=== PATIENT | female | born 1940 | race Caucasian/White ===

== ENCOUNTER 2018-10-31 23:23 | Inpatient (IN) | payer MEDICARE, BC, OTHER ==
[~2018-10-31] VITALS: Ht 157.5 cm; Wt 76.7 kg
--- NOTE | ~2018-10-31 | CON ---
[address] [address] CONSULTATION Name: DECLAN CRISOSTOMO Room: [address] IN .R.#: [id number] Admission: 11/01/18 Attend Phys: Ridge Stallworth MD Discharge: Date of : 38 Report #: [id number] THIS REPORT FOR: //name// CC: Ridge Stallworth [facility] physician/PCP DICTATED BY: Johnna HALLMAN DATE OF SERVICE: 11/01/2018 The patient does not have a current PCP. Please note at the time of this dictation, the patient was seen and physically examined by myself. REASON FOR CONSULTATION: Nausea and melenic stool. HISTORY OF PRESENT ILLNESS: This is a 77-year-old female who presented to the Emergency Room with generalized weakness. Prior to her visit to the ER, she has had 3 days' worth of very dark or black stools that she noted some bright red blood as well. She states her bowels were slightly looser than they normally have been, but were not runny, they were still semi-formed and had not increased in frequency. She did have a little bit of nausea with this yesterday when she felt profoundly fatigued. She was only having one melenic stool daily, did feel a little lightheaded and kind of broke out in sweat yesterday evening prior to coming in. She does take Aleve at bedtime for her arthritic pain periodically; some week she would not take any and other week she may take at a couple of times a week. She denies any Pepto-Bismol or any iron supplements at this time. The patient did say she had a colonoscopy 15+ years ago, she thinks somewhere in [facility], but she does not recall. She was told that she had a polyp at that time. ALLERGIES: INHALERS. MEDICATIONS: From home are spironolactone, Erin Thyroid and progesterone. 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 Hypertension. 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 FAMILY HISTORY: Mother had a female cancer. She does not recall what kind. SOCIAL HISTORY: She is . Denies any alcohol, tobacco [place] [address] CONSULTATION Name: DECLAN CRISOSTOMO Room: [address]#: [id number] Admission: 11/01/18 Attend Phys: Ridge Stallworth MD Discharge: Date of : 38 Report #: [id number] REVIEW OF SYSTEMS: Twelve-point review of systems is essentially negative except what is mentioned in the HPI. PHYSICAL EXAMINATION: VITAL SIGNS: Temperature 36.6, pulse 79, respirations 18, blood pressure 130/60. HEART: Regular rate and rhythm. LUNGS: Clear. ABDOMEN: Soft, positive bowel sounds in all 4 quadrants with no masses or tenderness noted. LABORATORY DATA: Hemoglobin on admission was 12.4, she is 11.6. White count is 7.4, platelets are 79,000. PT is 10.6, INR is 1, GFR is 54. Her LFTs are completely normal. CT of her abdomen and pelvis negative gallbladder, liver and pancreas, did show a fibroid with endometrial thickening and some diverticular disease noted. IMPRESSION: 1. Nausea, which has now resolved. 2. Melenic stool, x 4 days. 3. Weakness. 4. Thrombocytopenia. 5. History of polyps, greater than 15 years ago last colon. 6. Family history of mother female cancer, unknown type. PLAN: 1. EGD: Tomorrow with Dr. Jackson. 2. Prep today. 3. Further recommendations to be made once the procedure has been performed. Thank you for allowing us to participate in this patient's care. Please do not hesitate to call with any questions in regard to this consult. By: [id number] Jackson DO /rachel
[2018-10-31 23:30] VITALS: BP 156/78
[2018-10-31] MEDS ORDERED: SPIRONOLACTONE25 M1 PO (23:36)
[2018-10-31] MEDS ORDERED: ARMOUR THYROID15 M1 PO (23:37)
[2018-10-31] MEDS ORDERED: PROGESTERONE100 MG PO (23:38)
[2018-11-01 00:16] LABS: ABSOLUTE BASOPHILS 0.1 thou/uL (0.0-0.2); ABSOLUTE EOSINOPHILS 0.2 thou/uL (0.0-0.7); ABSOLUTE LYMPHOCYTES 2.8 thou/uL (0.8-5.3); ABSOLUTE MONOCYTES 0.3 thou/uL (0.0-1.2); ABSOLUTE NEUTROPHILS 4.1 thou/uL (1.6-8.1); BASOPHILS 0.7 %; EOSINOPHILS 2.7 %; HEMATOCRIT 36.3 % (37.0-47.0); HEMOGLOBIN 12.4 gm/dL (12.0-15.0); LYMPHOCYTES 37.7 %; MCH 30.9 pg (26.0-34.0); MCV 90.9 fL (80.0-100.0); MONOCYTES 4.2 %; MPV 7.9 fl. (7.2-11.1); NUCLEATED RBCS 0 /100WBC; POLYS 54.7 %; RDW-CV 13.5 % (10.5-14.5); WBC 7.4 thou/uL (4.0-11.0)
[2018-11-01 00:20] LABS: CALCIUM 8.7 mg/dL (8.5-10.1); POTASSIUM 4.7 mmol/L (3.5-5.1)
[2018-11-01 00:21] LABS: PROTIME 10.6 Seconds (9.20-11.50)
[2018-11-01 00:30] LABS: ALBUMIN 3.5 g/dL (3.4-5.0); TOTAL BILIRUBIN 0.4 mg/dL (<0.1-1.0); TOTAL PROTEIN 6.8 g/dL (6.4-8.2)
[2018-11-01 01:55] LABS: PLATELET COUNT* 79 thou/uL (150-400)
[2018-11-01 03:19] VITALS: BP 146/80
[2018-11-01 08:26] VITALS: BP 130/60
--- NOTE | 2018-11-01 08:58 | NUR ---
PT TO FLOOR APPROX 0400. ASSESSMENT COMPLETED CHARTED. SEE MAR. SEE CHARTING. HOURLY ROUNDING FOR SAFETY.
--- NOTE | 2018-11-01 10:21 | EKG ---
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: : [id number] Requested By: Natasha Santos Order Number: [id number] : Vishal Mathis Measurements Intervals [place] Rate: 74 P: 2 DC: 182 QRS: 41 QRSD: 91 T: 63 QT: 391 QTc: 434 Interpretive Statements Sinus rhythm Abnormal R-wave progression, early transition No previous ECG available for comparison Electronically Signed On 11-01-2018 10:21:39 CDT by Vishal Mathis [email or web address] <ELECTRONICALLY SIGNED> By: Vishal Mathis MD, [facility] 11/01/18 1021 0309 030 Vishal Mathis MD, [facility] /EPI
--- NOTE | 2018-11-01 10:29 | NUR ---
ASSUMED CARE OF PT THIS AM AROUND 714- FITNESS LEADER IN PLACE ORDERED, TRACING SR- UPON ASSESSMENT PT NOTED TO BE RESTING IN BED- PT A&O X4- CONTINENT OF BOWEL AND BLADDER- UP AD-YOVANA IN ROOM, STEADY GAIT NOTED- LCTA, RESP EVEN AND UN-LABORED- VSS, O2 SAT 98% ON RA- ABD SOFT/ROUND/NON-TENDER, BS X4 QUADS- PT REPORTED TO HAVE HAD FORMED BLACK IN COLOR BM WITH BLOOD NOTED PER TECH THIS X1- CLEAR LIQUID DIET IN PLACE- IV NOTED TO RIGHT FA INTACT, IVF INFUSSING PRESCIBED- PELVIC US ORDERED FOR THIS AM- PT DENIES ANY C/O PAIN/DISCOMFORT AT THIS TIME- CALL LIGHT AND PERSONAL BELONGINGS WITH IN REACH- PT MAKES NEEDS KNOWN- ALL NEEDS MET AT THIS TIME-WCTM
--- NOTE | 2018-11-01 13:52 | NUR ---
MET WITH PT TO DISCUSS HOME SITUATION/DC PLANNING. PT LIVES WITH SPOUSE. SHE IS NORMALLY INDEPENDENT AND ACTIVE. USES NO EQUIPMENT. HAD HH IN PAST AFTER JOINT SURGERY. PT IS SEEKING NEW DR AT THIS TIME. DISCUSSED AND GAVE LIST. PT DENIES OTHER NEEDS. WILL FOLLOW
--- NOTE | 2018-11-01 16:35 | NUR ---
PT CURRENTLY RESTING IN BED, WATCHING TV- MANAGER GAMING IN PLACE ORDERED, TRACING SR- IV TO RIGHT FA INTACT, IVF INFUSSING PRESCIBED- CLEAR LIQUID DIET IN PLACE ORDERED- EGD/COLON ORDERED FOR IN AM, BOWEL PREP STARTED THIS SHIFT ORDERED AROUND 1510- CONCENT SIGNED AND ON CHART- PT TO BE NPO AT MIDNIGHT- ORDERD ABD CT COMPLETED WITH F/U PELVIS US ORDERED; RESULTS NOTED IN [facility]- PT UP TO BED SIDE CHAIR AND TOLERATING WELL- DENIES ANY C/O PAIN/DISCOMFORT AT THIS TIME-MAKES NEEDS KNOWN- ALL NEEDS MET AT THIS TIME-WCTM
[2018-11-01 16:47] VITALS: BP 148/55
[2018-11-01 20:04] VITALS: BP 158/41
[2018-11-02] VITALS (8 sets, daily range): BP systolic 115–169; BP diastolic 46–69
[2018-11-02 05:13] LABS: ABSOLUTE EOSINOPHILS 0.4 thou/uL (0.0-0.7); ABSOLUTE LYMPHOCYTES 2.2 thou/uL (0.8-5.3); ABSOLUTE MONOCYTES 0.4 thou/uL (0.0-1.2); ABSOLUTE NEUTROPHILS 3.4 thou/uL (1.6-8.1); BASOPHILS 0.6 %; EOSINOPHILS 6.4 %; HEMATOCRIT 27.6 % (37.0-47.0); LYMPHOCYTES 34.7 %; MCHC 34.1 g/dL (28.0-37.0); MCV 90.9 fL (80.0-100.0); MONOCYTES 6.6 %; MPV 9.3 fl. (7.2-11.1); NUCLEATED RBCS 0 /100WBC; PLATELET COUNT* 100 thou/uL (150-400); POLYS 51.7 %; RBC 3.04 mil/uL (4.20-5.00); RDW-CV 13.5 % (10.5-14.5); WBC 6.5 thou/uL (4.0-11.0)
[2018-11-02 05:18] LABS: HEMOGLOBIN 9.4 gm/dL (12.0-15.0)
--- NOTE | 2018-11-02 05:31 | NUR ---
PT IS ABLE TO COMMUNICATE HER NEEDS TO STAFF EFFECTIVELY. SHE HAS DENIED THE NEED FOR PAIN MEDICATION UP TO THIS TIME. SHE HAS BEEN NPO SINCE MIDNIGHT FOR A POSSIBLE EGD AND COLONOSCOPY LATER TODAY. BOWEL PREP FLUID COMPLETED.
[2018-11-02 05:45] LABS: CALCIUM 7.6 mg/dL (8.5-10.1); CREATININE 0.8 mg/dL (0.6-1.3); POTASSIUM 3.9 mmol/L (3.5-5.1)
[2018-11-02 06:32] LABS: ESR (SEDRATE) 4 mm/hr (0-30)
--- NOTE | 2018-11-02 09:33 | NUR ---
ASSUMED CARE OF PT THIS AM AROUND 0715- CORE MICROARCHITECT IN PLACE ORDERED, TRACING SR-UPON ASSESSMENT PT NOTED TO BE RESTING IN BED- PT A&O X4- CONTINENT OF BOWEL AND BLADDER- UP AD-YOVANA IN ROOM, STEADY GAIT NOTED- LCTA, RESP EVEN AND UN-LABORED- VSS, O2 SAT 97% ON RA- ABD SOFT/ROUND/NON-TENDER, BS X4 QUADS- EGD ORDERED FOR THIS AM, GI PREP GIVEN PRESCIBED- PT NPO- IV NOTED TO RIGHT FA INTACT, IVF INFUSSING PRESCIBED- DENIES ANY C/O PAIN/DISCOMFORT AT THIS TIME- PT CURRENLTY OFF UNIT FOR EGD, NOTED TO HAVE LEFT UNIT AROUND 0840- ALL NEEDS MET-WCTM
--- NOTE | 2018-11-02 16:56 | NUR ---
PT CURRENTLY RESTING IN BED SIDE CHAIR- INTERIOR DESIGN TEACHER IN PLACE, TRACING SR- IV NOTED TO RIGHT FA INTACT AND SL, IVF D/C'D PER GI THIS SHIFT- EGD COMPLETED THIS SHIFT WITH RESULTS NOTED IN [facility]- RECOMMENDED PROTONIX 40MG DAILY X3 MONTHS, F/U CLIENT APPLICATION SUPPORT ENGINEER, REPEAT EGD IN 3 MON TO EVAL ULCER, RE-CHECK LABS IN 4 WEEKS, AND AVOID ASA AND NSAIDS- REGULAR DIET STARTED AND IF TOLERATING MY BE ABLE TO D/C IN AM PER GI- LUNCH GIVEN WITH GOOD PO INTAKE NOTED, NO C/O PAIN/DISCOMFORT- PT MAKES NEEDS KNOWN- ALL NEEDS MET AT THIS TIME-WCTM
[2018-11-03] VITALS: BP 136/60
[2018-11-03 04:27] VITALS: BP 136/47
--- NOTE | 2018-11-03 06:07 | NUR ---
PT IS ABLE TO COMMUNICATE HER NEEDS TO STAFF EFFECTIVELY. SHE HAS DENIED THE NEED FOR PAIN MEDICATION UP TO THIS TIME. POSSIBLE DISCHARGE LATER TODAY.
[2018-11-03 08:05] VITALS: BP 112/49
--- NOTE | 2018-11-03 08:30 | NUR ---
ASSUMED CARE AFTER REPORT. A&OX4. ABLE TO COMMUNICATE NEEDS EFFECTIVELY. AGRI BUSINESS AGENT IN PLACE, SR. O2 SATS 97% RA. UP AD YOVANA WALKING IN HALLWAYS WITH STEADY GAIT. CALL LIGHT IN REACH. HOURLY ROUNDING IN SAFETY AND PATIENT NEEDS.
[2018-11-03 10:32] LABS: HEMATOCRIT 29.2 % (37.0-47.0); HEMOGLOBIN 9.9 gm/dL (12.0-15.0); MCH 30.9 pg (26.0-34.0); MCV 90.8 fL (80.0-100.0); MPV 9.3 fl. (7.2-11.1); RBC 3.22 mil/uL (4.20-5.00); RDW-CV 13.6 % (10.5-14.5); WBC 4.4 thou/uL (4.0-11.0)
[2018-11-03 11:31] VITALS: BP 112/49
[2018-11-03] MEDS ORDERED: PROTONIX40 M1 PO (12:16)
[2018-11-03 12:19] VITALS: BP 137/84
--- NOTE | 2018-11-03 12:31 | NUR ---
ORDERS NOTED FOR DC HOME WITH BURN OUT TENDER LACE REFERRAL. MET WITH PT, PREFERS TO USE [employer] [facility]. WAS ABLE TO SET UP APPT WITH DR PATEL, INFO PRINTED AND GIVEN TO PT AND PUT IN DC INSTRUCTIONS. FAXED H/P, PROGRESS NOTE AND US TO 'S OFFICE FOR APPT. PT PLANS TO FIND HER OWN PCP. NO OTHER NEEDS ID'D
--- NOTE | 2018-11-03 13:30 | NUR ---
PATIENT WITH COMPLETE DC ORDER. REVIEWED DC INSTRUCTIONS AND MED LIST WITH PATIENT AND SPOUSE. ANSWERED QUESTIONS TO THEIR SATISFACTION. MOTOR POWER CONNECTOR AND IV DISCONTINUED. PATIENT IN POSSESSION OF PERSONAL BELONGINGS. VOLUNTEER TO ROOM TO ESCORT PATIENT TO FRONT ENTRANCE. SPOUSE TO TAKE PATIENT TO HOME VIA PERSONAL VEHICLE.
--- NOTE | 2018-11-04 17:06 | PATH ---
[address] [address] PATHOLOGY RPT PROCEDURE Name: DECLAN CRISOSTOMO Room: [address] IN M.R.#: [id number] Admission: 11/01/18 Date of : 38 Discharge: 11/03/18 Report #: [id number] Path Case #: [id number] [facility] Accession Number: [id number] . 01 Material submitted: . stomach - ANTRAL BIOPSY . 01 Clinical history: . Blood in stool, weakness For H. pylori for gastric ulcer, gastritis, duodenitis . 02 Diagnosis: Stomach, antrum, biopsy: - Chronic superficial gastritis, mild. - No evidence of Helicobacter pylori on immunoperoxidase stain. (SKM/db; 11/04/2018) LBQ/11/04/2018 . 02 Electronically signed: . Anthony Antonoi MD, Pathologist NPI- [id number] . 01 Gross description: . Received in formalin labeled "Hindu, Cleola, antral biopsy," is a segment of malhotra soft tissue measuring 0.5 x 0.2 x 0.2 cm in greatest dimensions. The specimen is submitted entirely in cassette A1. ([facility]; 11/03/2018) XDC/XDC . 02 Pathologist provided ICD-10: K29.30 . 02 CPT . 909366, X60300 Specimen Comment: A courtesy copy of this report has been sent to Specimen Comment: [phone], . Specimen Comment: Report sent to / DR MILLAN Performed at: [address], [place] [id number] MD Pascual Varela MD Phone: [phone] Performed at: 02 [facility] [address], [place], [place] [id number] MD Andrzej Bello MD Phone: [phone]
== END 2018-11-03 13:40 | disposition home or self-care (01) | DRG 378 ==
LOC: M.ERS 23:23 → M.TBA-ER 11-01 02:17 → M.2W 11-01 02:17
PROVIDERS: Emergency Medicine; ADMIT Internal Medicine
DX: K29.71 Gastritis, unspecified, with bleeding (principal); D62 Acute posthemorrhagic anemia; K25.4 Chronic or unspecified gastric ulcer with hemorrhage; Z96.651 Presence of right artificial knee joint; I10 Essential (primary) hypertension; D69.6 Thrombocytopenia, unspecified; D25.9 Leiomyoma of uterus, unspecified; K64.4 Residual hemorrhoidal skin tags; K57.31 Diverticulosis of large intestine without perforation or abscess with bleeding; K22.2 Esophageal obstruction; K29.81 Duodenitis with bleeding; K44.9 Diaphragmatic hernia without obstruction or gangrene; Z86.010 Personal history of colon polyps

== ENCOUNTER → 2018-12-20 | Outpatient (CLI) | payer MEDICARE, BC, OTHER ==
[~2018-12-20] MED LIST: ARMOUR THYROID15 M1 PO; PROGESTERONE100 MG PO; PROTONIX40 M1 PO; SPIRONOLACTONE25 M1 PO
[2018-12-20 13:32] LABS: ABSOLUTE EOSINOPHILS 0.3 thou/uL (0.0-0.7); ABSOLUTE LYMPHOCYTES 1.4 thou/uL (0.8-5.3); ABSOLUTE MONOCYTES 0.4 thou/uL (0.0-1.2); EOSINOPHILS 6.7 %; HEMATOCRIT 40.2 % (37.0-47.0); HEMOGLOBIN 13.5 gm/dL (12.0-15.0); LYMPHOCYTES 34.2 %; MCH 29.9 pg (26.0-34.0); MCHC 33.6 g/dL (28.0-37.0); MCV 88.7 fL (80.0-100.0); MONOCYTES 9.5 %; MPV 7.6 fl. (7.2-11.1); NUCLEATED RBCS 0 /100WBC; PLATELET COUNT* 254 thou/uL (150-400); POLYS 48.6 %; RBC 4.53 mil/uL (4.20-5.00); RDW-CV 13.2 % (10.5-14.5); WBC 4.1 thou/uL (4.0-11.0)
[2018-12-20 13:47] LABS: ALBUMIN 3.7 g/dL (3.4-5.0); CALCIUM 8.7 mg/dL (8.5-10.1); CREATININE 0.9 mg/dL (0.6-1.3); POTASSIUM 4.3 mmol/L (3.5-5.1); TOTAL BILIRUBIN 0.4 mg/dL (<0.1-1.0); TOTAL PROTEIN 7.4 g/dL (6.4-8.2)
[2018-12-20 14:37] LABS: ESR (SEDRATE) 18 mm/hr (0-30)
== END ==
LOC: M.LAB 13:15
PROVIDERS: Internal Medicine Gastroenterology
DX: D69.6 Thrombocytopenia, unspecified (principal); K92.1 Melena